=== PATIENT | female | born 1950 | race African-American/Black ===

== ENCOUNTER 2025-01-18 23:06 | Inpatient (IN) | payer OTHER ==
[~2025-01-18] VITALS: Ht 170.2 cm; Wt 70.3 kg
[2025-01-19] VITALS (19 sets, daily range): BP systolic 86–189; BP diastolic 47–89; PULSE 62–101; RESP 14–24; TEMP 36–36.9; O2SAT 96–100
[2025-01-19 01:16] LABS: BASOPHILS % 1.3 % (0.0-2.0); EOSINOPHILS % 3.9 % (0.0-5.0); HEMATOCRIT. 34.3 % (36.0-48.0); HEMOGLOBIN. 10.8 g/dL (12.0-16.0); LYMPHOCYTES % 23.3 % (20.0-50.0); MEAN PLATELET VOLUME 6.8 fl (7.4-10.4); MONOCYTES % 7.9 % (2.0-8.0); NEUTROPHILS % 63.6 % (40.0-76.0); PLATELET 293 x1000/uL (130-400); RED BLOOD CELL COUNT 3.68 mill/uL (4.2-5.4); RED CELL DISTRIBUTION WIDTH 19.7 % (11.6-14.6)
[2025-01-19 01:26] LABS: UREA NITROGEN BLOOD 37 mg/dL (9-23)
[2025-01-19 01:36] LABS: CREATININE 11.5 mg/dL (0.6-1.0); TROPONIN I HIGH SENSITIVITY 50 ng/L (3.0-34)
[2025-01-19] MEDS ORDERED: IPRATROPIUM/ALBUTEROL 0.5-3(2.5)MG/3ML NEB HHN PRN (03:15)
[2025-01-19] MEDS ORDERED: ACETAMINOPHEN 325MG TABLET PO PRN (03:15)
[2025-01-19] MEDS ORDERED: CLONIDINE 0.1MG TABLET PO PRN (03:15)
[2025-01-19] MEDS ORDERED: DOCUSATE SODIUM 100MG CAPSULE PO PRN (03:15)
[2025-01-19 03:45] LABS: TROPONIN I HIGH SENSITIVITY 47 ng/L (3.0-34)
[2025-01-19] MEDS: PANTOPRAZOLE SODIUM 40 MG/VIAL IV SCH (03:46)
[2025-01-19] MEDS: SODIUM ZIRCONIUM CYCLOSILICATE 10GM/PACKET PO NR (03:46)
[2025-01-19] MEDS: AMLODIPINE 10MG TABLET PO SCH (03:48)
[2025-01-19] MEDS: ACETAMINOPHEN 325MG TABLET PO PRN (03:56)
[2025-01-19] MEDS: CEFTRIAXONE 1GM/50ML 50 ML IV SCH (05:43)
[2025-01-19] MEDS: ENOXAPARIN 80MG/0.8ML SYR SUBCUT SCH (05:50)
[2025-01-19 05:52] LABS: BG BASE EXCESS -0.4 mmol/L (-2.0-3.0); BG CARBOXYHEMOGLOBIN 1.2 % (0.5-1.5); BG DEOXYHEMOGLOBIN 4.3 % (0.0-5.0); BG FRACTION INSPIRED OXYGEN 21; BG HCO3 ACT 24.6 mmol/L (21.0-28.0); BG METHEMOGLOBIN 0.3 % (0.5-1.5); BG OXYGEN SATURATION 95.6 % (94.0-98.0); BG OXYHEMOGLOBIN 94.2 % (94.0-98.0); BG PCO2 41.6 mmHg (32.0-45.0); BG PH 7.389 (7.350-7.450); BG PO2 83.5 mmHg (83.0-108.0); BG TOTAL HEMOGLOBIN 11.3 g/dL (12.0-16.0); BG VENT MODE ROOM AIR
[2025-01-19] MEDS: IPRATROPIUM/ALBUTEROL 0.5-3(2.5)MG/3ML NEB HHN SCH (06:10)
[2025-01-19 07:20] LABS: CREATINE KINASE MB FRACTION 0.8 ng/mL (0.5-3.6)
[2025-01-19 07:27] LABS: PHOSPHORUS 3.0 mg/dL (2.5-4.9)
[2025-01-19 07:37] LABS: INR 1.0
[2025-01-19 07:38] LABS: TROPONIN I HIGH SENSITIVITY 47 ng/L (3.0-34)
[2025-01-19] MEDS: IPRATROPIUM/ALBUTEROL 0.5-3(2.5)MG/3ML NEB HHN NR (08:18)
[2025-01-19] MEDS: ASPIRIN 81MG TABLET PO SCH (10:59)
[2025-01-19] MEDS: ENOXAPARIN 30MG/0.3ML SYR SUBCUT SCH (11:01)
[2025-01-19] MEDS: DOXYCYCLINE 100MG/100ML 100 ML IV SCH (11:02)
[2025-01-19 11:24] LABS: TROPONIN I HIGH SENSITIVITY 34 ng/L (3.0-34)
[2025-01-19] MEDS: HYDRALAZINE HCL 50MG TABLET PO SCH (13:40)
[2025-01-19] MEDS: ONDANSETRON HCL 4MG/2ML INJ IV PRN (15:44)
[2025-01-19] MEDS: TRAMADOL 50MG TABLET PO PRN (19:05)
[2025-01-19 22:00] LABS: CREATINE KINASE MB FRACTION 0.8 ng/mL (0.5-3.6); TROPONIN I HIGH SENSITIVITY 31.0 ng/L (3.0-34)
[2025-01-19 22:51] LABS: HEPATITIS A AB IGM NEGATIVE (Negative)
[2025-01-19 22:52] LABS: HEPATITIS B CORE AB IGM NEGATIVE (Negative); HEPATITIS C AB NON REACTIVE (Neg) (Negative)
[2025-01-20] VITALS (17 sets, daily range): BP systolic 125–175; BP diastolic 41–78; PULSE 75–105; RESP 16–21; TEMP 36.1–37; O2SAT 97–100
[2025-01-20 07:10] LABS: TRIGLYCERIDE 77.0 mg/dL (0-150); UREA NITROGEN BLOOD 28.0 mg/dL (9-23)
[2025-01-20 07:11] LABS: LDL CHOLESTEROL 77.0 mg/dL (5-100); T4 FREE 1.3 ng/dL (0.89-1.76)
[2025-01-20 07:13] LABS: BASOPHILS % 1.0 % (0.0-2.0); EOSINOPHILS % 0.5 % (0.0-5.0); HEMATOCRIT. 33.4 % (36.0-48.0); HEMOGLOBIN. 10.8 g/dL (12.0-16.0); LYMPHOCYTES % 12.3 % (20.0-50.0); MEAN PLATELET VOLUME 7.3 fl (7.4-10.4); MONOCYTES % 12.6 % (2.0-8.0); NEUTROPHILS % 73.6 % (40.0-76.0); PLATELET 303 x1000/uL (130-400); RED BLOOD CELL COUNT 3.61 mill/uL (4.2-5.4); RED CELL DISTRIBUTION WIDTH 20.0 % (11.6-14.6)
[2025-01-20 09:17] LABS: CREATININE 8.7 mg/dL (0.6-1.0)
[2025-01-21] VITALS (7 sets, daily range): BP systolic 125–146; BP diastolic 44–53; PULSE 93–108; RESP 16–18; TEMP 36.3–36.8; O2SAT 98–99
[2025-01-21 06:15] LABS: UREA NITROGEN BLOOD 19 mg/dL (9-23)
[2025-01-21 06:17] LABS: PHOSPHORUS 3.8 mg/dL (2.5-4.9)
[2025-01-21 06:41] LABS: CREATININE 6.6 mg/dL (0.6-1.0)
[2025-01-21 06:43] LABS: PLATELET 336 x1000/uL (130-400); RED BLOOD CELL COUNT 3.54 mill/uL (4.2-5.4); RED CELL DISTRIBUTION WIDTH 20.0 % (11.6-14.6)
[2025-01-21] MEDS ORDERED: ASPI-1160 PO (12:22)
[2025-01-21] MEDS ORDERED: AMLO10TA80 PO (12:22)
== END 2025-01-21 16:30 | disposition home or self-care (01) | DRG 193 ==
LOC: ER 23:19 → 5WST 01-19 01:54 → EDBEDREQTM 01-19 02:11 → EDBEDREQDT 01-19 02:11 → EDBEDREQ 01-19 02:11 → ENRESERV 01-19 02:19 → 5WST 01-19 03:58
PROVIDERS: ADMIT Hospitalist; ATTEND Hospitalist
PROC: 5A1D70Z Performance of Urinary Filtration, Intermittent, Less than 6 Hours Per Day (ICD-10-PCS; principal; 2025-01-19)
PROC: 5A1D70Z Performance of Urinary Filtration, Intermittent, Less than 6 Hours Per Day (ICD-10-PCS; 2025-01-20)
DX: J18.9 Pneumonia, unspecified organism (principal); I21.A1 Myocardial infarction type 2; J96.21 Acute and chronic respiratory failure with hypoxia; N18.6 End stage renal disease; I16.9 Hypertensive crisis, unspecified; C34.90 Malignant neoplasm of unspecified part of unspecified bronchus or lung; J81.1 Chronic pulmonary edema; J44.0 Chronic obstructive pulmonary disease with (acute) lower respiratory infection; I12.0 Hypertensive chronic kidney disease with stage 5 chronic kidney disease or end stage renal disease; E87.70 Fluid overload, unspecified; I16.0 Hypertensive urgency; M10.9 Gout, unspecified; E87.5 Hyperkalemia; D64.9 Anemia, unspecified; J44.9 Chronic obstructive pulmonary disease, unspecified; Z99.2 Dependence on renal dialysis; Z99.81 Dependence on supplemental oxygen; Z88.5 Allergy status to narcotic agent; Z79.82 Long term (current) use of aspirin; Z79.899 Other long term (current) drug therapy; Z88.6 Allergy status to analgesic agent; Z91.158 Patient's noncompliance with renal dialysis for other reason
CPT/HCPCS: 36415; 36600; 71045; 80048; 80061; 82375; 82550; 82553; 82805; 83605; 83735; 83880; 84100; 84145; 84439; 84443; 84484; 85025; 85027; 85379; 86705; 86709; 87340; 90935; 93005; 93970; 94070; 94640; 94664; 98960; 99285; J0696; J1650; J2405; J2470; J3490